=== PATIENT | female | born 1995 | race Two or more races ===

== ENCOUNTER 2025-01-19 07:47 | Outpatient (CLI) | payer OTHER | END 2025-01-19 07:48 | disposition home or self-care (01) | LOC: EDBD 07:47 → PRENATAL 07:47 | PROVIDERS: ATTEND Obstetrics & Gynecology Maternal & Fetal Medicine | DX: O44.00 Complete placenta previa NOS or without hemorrhage, unspecified trimester (principal); Z14.8 Genetic carrier of other disease; Z3A.20 20 weeks gestation of pregnancy ==

== ENCOUNTER 2025-03-16 14:47 | Outpatient (CLI) | payer OTHER | END 2025-03-16 14:53 | disposition home or self-care (01) | LOC: PRENATAL 14:47 | PROVIDERS: ATTEND Obstetrics & Gynecology Maternal & Fetal Medicine | DX: O26.849 Uterine size-date discrepancy, unspecified trimester (principal); O36.8199 Decreased fetal movements, unspecified trimester, other fetus; O44.00 Complete placenta previa NOS or without hemorrhage, unspecified trimester; Z14.8 Genetic carrier of other disease; Z3A.29 29 weeks gestation of pregnancy ==

== ENCOUNTER 2025-05-31 13:45 | Inpatient (IN) | payer OTHER ==
[~2025-05-31] VITALS: Ht 170.2 cm; Wt 100.7 kg
[2025-06-07 08:13] VITALS: BP 127/77
[2025-06-07] MEDS ORDERED: RINGERS SOLUTION,LACTATED 1,000 ML IV SCH (08:15)
[2025-06-07 08:39] VITALS: BP 127/77
[2025-06-07] MEDS ORDERED: MISOPROSTOL 25 MCG/4 ML GEL.W.APPL VAG ONE ×3 (09:00→22:00)
[2025-06-07] MEDS ORDERED: LABETALOL HCL200 MG PO (09:03)
[2025-06-07] MEDS ORDERED: PRENATA CHEWAB1 EACH PO (09:04)
[2025-06-07] MEDS ORDERED: FOLIC ACID0.8 M1 PO (09:04)
[2025-06-07 09:33] LABS: BASO % 0.2 % (0.1-1.2); EOS # 0.10 (0.04-0.54); EOS % 1.2 % (0.7-7.0); LYMPH # 1.69 (1.18-3.74); LYMPH % 20.2 % (19.3-53.1); MEAN PLATELET VOLUME 10.00 fl (9.4-12.4); MONO # 0.70 (0.24-0.82); MONO % 8.4 % (4.7-12.5); NEUT # 5.81 (1.56-6.13); NEUT % 69.5 % (34.0-71.1); RED CELL DISTRIBUTION WIDTH 14.2 % (11.6-14.4)
[2025-06-07 09:41] LABS: URINE APPEARANCE Clear; URINE BILIRRUBIN Negative (NEGATIVE); URINE BLOOD Negative; URINE COLOR Yellow; URINE GLUCOSE Negative (NEGATIVE); URINE KETONE Negative (NEGATIVE); URINE LEUKOCYTE Negative; URINE NITRATE Negative; URINE PROTEIN Negative (NEGATIVE); URINE UROBILINOGEN 0.2 E.U./dl
[2025-06-07 09:42] LABS: URINE BACTERIA 263.9 uL (0.0-1933); URINE EPITHELIAL CELLS 15.2 uL (0.0-38.8); URINE RBC 5.1 uL (0.0-20.8); URINE WBC 7.5 uL (0.0-23.2)
[2025-06-07 09:43] LABS: URINE CAST 0.00 uL (0.0-1.40)
[2025-06-07 09:58] LABS: INR < 0.93
[2025-06-07 10:16] LABS: ALT/SGPT 28.0 U/L (12-78); AST/SGOT 30.0 U/L (15-37); BILIRUBIN TOTAL 0.45 mg/dL (0.3-1.2); BUN CREA RATIO 16.0 (7.0-25.0); CREATININE SERUM 0.67 mg/dL (0.55-1.02); GFR 103.34; GLOBULINA 3.8 G/DL (2.4-3.5); GLUCOSE FASTING 69.0 mg/dL (65-100); OSMOLALITY SERUM 275.0 MOSM/KG (275-295)
[2025-06-07 11:43] VITALS: BP 131/69
[2025-06-07 15:17] VITALS: BP 134/62
[2025-06-07] MEDS ORDERED: MISOPROSTOL 25 MCG/4 ML GEL.W.APPL ONE (16:48)
[2025-06-07 21:53] VITALS: BP 115/60
[2025-06-07 23:19] VITALS: BP 110/53
[2025-06-08 04:19] VITALS: BP 149/70
[2025-06-08] MEDS ORDERED: OXYTOCIN 10 UNITS/ML VIAL ONE (11:57)
[2025-06-08] MEDS ORDERED: ERYTHROMYCIN BASE OPHT 1GM EACH TUBE OP ONE (11:57)
[2025-06-08] MEDS ORDERED: KETOROLAC TROMETHAMINE 60 MG VIAL IM ONE (16:46)
[2025-06-08] MEDS ORDERED: MORPHINE SULFATE 4 MG/ML CARTRIDGE IV SCH (17:00)
[2025-06-08 18:37] VITALS: BP 104/56
[2025-06-08] MEDS ORDERED: KETOROLAC TROMETHAMINE 60 MG VIAL IM NR (20:00)
[2025-06-08 20:43] LABS: BASO % 0.2 % (0.1-1.2); EOS # 0.04 (0.04-0.54); EOS % 0.4 % (0.7-7.0); LYMPH # 1.69 (1.18-3.74); LYMPH % 15.5 % (19.3-53.1); MEAN PLATELET VOLUME 10.20 fl (9.4-12.4); MONO # 0.78 (0.24-0.82); MONO % 7.2 % (4.7-12.5); NEUT # 8.34 (1.56-6.13); NEUT % 76.4 % (34.0-71.1); RED CELL DISTRIBUTION WIDTH 14.0 % (11.6-14.4)
[2025-06-09 00:47] VITALS: BP 150/80
[2025-06-09 04:00] VITALS: BP 130/80
[2025-06-09] MEDS ORDERED: OxyCODONE HCL 5 MG TABLET (ROXICODONE) PO SCH (05:00)
[2025-06-09] MEDS ORDERED: SIMETHICONE 125 MG CAPSULE PO SCH (08:00)
[2025-06-09] MEDS ORDERED: PNV,CALCIUM 72/IRON/FOLIC ACID 1 TAB TABLET PO SCH (08:00)
[2025-06-09] MEDS ORDERED: DOCUSATE SODIUM 100MG CAP PO SCH (08:00)
[2025-06-09 08:54] VITALS: BP 113/75
[2025-06-09 17:05] VITALS: BP 124/73
[2025-06-10 00:54] VITALS: BP 118/78
[2025-06-10 08:00] VITALS: BP 115/72
[2025-06-10 17:00] VITALS: BP 121/71
[2025-06-11] VITALS: BP 140/80
[2025-06-11 09:22] VITALS: BP 111/76
== END 2025-06-11 14:04 | disposition home or self-care (01) | DRG 788 ==
LOC: LDR 06-07 07:43 → OB/GYN 06-08 13:45
PROVIDERS: ADMIT Obstetrics & Gynecology; ATTEND Obstetrics & Gynecology
PROC: 4A1HXCZ Monitoring of Products of Conception, Cardiac Rate, External Approach (ICD-10-PCS; 2025-06-07)
PROC: 3E033VJ Introduction of Other Hormone into Peripheral Vein, Percutaneous Approach (ICD-10-PCS; 2025-06-07)
PROC: 3E0P7VZ Introduction of Hormone into Female Reproductive, Via Natural or Artificial Opening (ICD-10-PCS; 2025-06-07)
PROC: 10D00Z1 Extraction of Products of Conception, Low, Open Approach (ICD-10-PCS; principal; 2025-06-08 12:30)
DX: O82 Encounter for cesarean delivery without indication (principal); O33.8 Maternal care for disproportion of other origin; Z3A.40 40 weeks gestation of pregnancy; Z37.0 Single live birth